=== PATIENT | male | born 1985 | race Caucasian/White ===

== ENCOUNTER 2022-05-16 18:45 | Emergency (ER) | payer BC ==
[~2022-05-16] VITALS: Ht 182.9 cm; Wt 90.7 kg
[2022-05-16 18:59] VITALS: BP 112/65
--- NOTE | 2022-05-16 19:26 | NUR ---
[facility] at bedside for wound care
[2022-05-16] MEDS ORDERED: LIDOCAINE 2% 20 ML MDV ONE (20:08)
[2022-05-16] MEDS ORDERED: TDAP [DIPH/PERTUSSIS/TET] 0.5 ML VIAL IM ONE ×2 (20:08→20:30)
[2022-05-16] MEDS ORDERED: LIDOCAINE HCL/PF 1% 30 ML VIAL TP ONE (20:30)
[2022-05-16] MEDS ORDERED: BACITRACIN ZINC OINT PACKET 1 EA PACKET TP ONE ×2 (21:18→21:30)
[2022-05-16] MEDS ORDERED: HYDR-4209 PO (21:23)
--- NOTE | 2022-05-16 21:24 | NUR ---
DRESSING APPLIED TO RIGHT 4TH FINGER; NO ACTIVE BLEEDING NOTED
--- NOTE | 2022-05-16 21:40 | NUR ---
Patient discharged to home in stable condition. Written and verbal after care instructions given. Patient verbalizes understanding of instruction. Pt ambulatory with a steady gait
== END 2022-05-16 21:40 | disposition home or self-care (01) ==
LOC: ER 18:45
DX: S61.314A Laceration without foreign body of right ring finger with damage to nail, initial encounter (principal); W26.8XXA Contact with other sharp object(s), not elsewhere classified, initial encounter; Y93.89 Activity, other specified; Y92.89 Other specified places as the place of occurrence of the external cause; Y99.8 Other external cause status
CPT/HCPCS: 99283; 12001; 90471; 90715; J3490 ×2

== ENCOUNTER 2022-05-27 16:01 | Emergency (ER) | payer BC ==
[~2022-05-27] VITALS: Ht 182.9 cm; Wt 90.7 kg
[~2022-05-27 16:01] MED LIST: HYDR-4209 PO
[2022-05-27 16:12] VITALS: BP 114/69
--- NOTE | 2022-05-27 16:50 | NUR ---
SUTURE REMOVAL DONE, TOLERATED PROCEDURE WELL CLEARED FOR DISCHARGE.
== END 2022-05-27 18:06 | disposition home or self-care (01) ==
LOC: ER 16:05
DX: Z48.02 Encounter for removal of sutures (principal); Z79.899 Other long term (current) drug therapy